=== PATIENT | male | born 1960 | race Caucasian/White ===

== ENCOUNTER 2020-10-27 05:32 | Day surgery (SDC) | payer BC ==
[2020-10-27] MEDS ORDERED: Lactated Ringers 1,000 ML IV ONE (06:20)
[2020-10-27] MEDS ORDERED: Lactated Ringers 1,000 ML IV SCH (06:30)
[2020-10-27] MEDS ORDERED: Xylocaine-Mpf 2% 5 Ml Vial ONE (07:57)
[2020-10-27] MEDS ORDERED: DIPRIVAN 200 MG/20 ML IV ONE (07:57)
[2020-10-27] MEDS ORDERED: Versed 2 MG/2 ML Injection ONE (07:57)
--- NOTE | 2020-10-27 08:58 | OP ---
SURGERY DATE/TIME: 10/27/2020 0755 PREOPERATIVE DIAGNOSIS: Heartburn. POSTOPERATIVE DIAGNOSIS: Mild to moderate gastritis. PROCEDURE: Esophagogastroduodenoscopy with cold forceps biopsy. SURGEON: Dr. Denis. ANESTHESIA: Medications were given by the anesthesia department. BRIEF HISTORY: The patient is a 60 year old white male presenting now for endoscopic evaluation. He reports that he has been having substernal chest pain and heartburn for many years. He reports that the pantoprazole is no longer working for him. 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 The patient was appraised of the risks of the procedure including the risk of perforation, phlebitis, untoward reaction to medication, bleeding and missed lesions. The patient verbalized his understanding and desired to have the procedure performed. DESCRIPTION OF PROCEDURE: The patient was given the medications by the anesthesia department. He had continuous pulse oximetry, ECG monitoring, intermittent blood pressure monitoring and tidal CO2 monitoring during the examination. He was placed in the left lateral decubitus position. A bite block was placed and the flexible Olympus gastroscope was used to intubate the oropharynx. A view of the larynx was obtained and was normal. The scope was easily introduced in the esophagus which appeared to be essentially normal throughout its length. The stomach was entered where normal gastric rugal folds were seen and these distended nicely with insufflation of air. A gastric irving was suctioned dry and the stomach re-insufflated. The scope was passed along the greater curvature of the stomach to the antrum. The pylorus was encountered and intubated. Duodenum inspected and found to be essentially normal. The scope is withdrawn towards the stomach. A retroflex view was obtained of the lesser curvature, fundus and cardia regions of the stomach and there was no significant hiatal hernia noted. The scope was then redirected towards the gastric antrum where biopsies were obtained to rule out the presence of Helicobacter pylori-type organisms. The scope was then removed from the patient who tolerated the procedure well and was sent back to outpatient recovery in good condition. The patient was added famotidine 40 mg a day and asked to stop taking aspirin. I will see him in follow up in the office to give the results of his biopsies.
[2020-10-27 09:11] VITALS: O2SAT 96
[2020-10-27 09:13] VITALS: BP 135/61; PULSE 81
== END 2020-10-27 09:40 | disposition home or self-care (01) ==
LOC: SDC 05:32
PROVIDERS: ATTEND Family Medicine
DX: K29.70 Gastritis, unspecified, without bleeding (principal); R12 Heartburn; Z79.899 Other long term (current) drug therapy
CPT/HCPCS: J2250; J2704

== ENCOUNTER 2025-07-10 15:01 | Emergency (ER) | payer BC ==
[2025-07-10 15:23] VITALS: BP 169/89; PULSE 88; RESP 18; TEMP 97; O2SAT 96
[2025-07-10] MEDS: TYLENOL 325 MG PO STA (16:32)
--- NOTE | 2025-07-10 16:52 | ERPHSYRPT ---
- History of Present Illness Time Seen by Provider: 07/10/25 15:05 Source: patient Patient Subjective Stated Complaint: pt here for pain to left knee after he states the dog ran into the back of hes leg, he did states the dog made him fall, denies hitting head Triage Nursing Assessment: pt alert, walked in with a cane, resp easy, skin w/d/p, has tenderness to left knee, with limited ROM. no swelling Physician History: HISTORY OF PRESENT ILLNESS 65-year-old male with diabetes, MRSA, and hyperlipidemia presents with left knee pain after twisting his leg when a dog ran next to him. He denies the dog biting him; he braced his fall and denies any head injury. He is not anticoagulated. The patient is normally ambulatory without a cane and has a knee brace from home; he has remained ambulatory since the injury. He took Aleve at home prior to arrival. He has decisional capacity and expressed a desire to go home. Denies numbness, paresthesias, subjective weakness, or open wound. PAST MEDICAL HISTORY - Diabetes - Methicillin-resistant Staphylococcus aureus (MRSA) infection - Hyperlipidemia SOCIAL HISTORY - Ambulatory, walking with cane currently Allergies/Adverse Reactions: Iodinated Contrast Media Allergy (Unknown, Verified 07/10/25 15:12) Joint Aches phenobarbital Allergy (Unknown, Verified 07/10/25 15:12) Itching Home Medications: Multivitamin [Multiple Vitamins] 1 tab PO DAILY 07/03/12 [History] PANTOPRAZOLE 40 mg Tablet [Protonix 40MG Tablet] 40 mg PO QAM 10/18/20 [History] Atorvastatin Calcium [Lipitor] 10 mg PO DAILY 10/27/20 [History] Lisinopril 5 mg [Zestril 5 MG] 5 mg PO DAILY 07/10/25 [History] Hx Tetanus, Diphtheria Vaccination/Date Given: No Hx Influenza Vaccination/Date Given: No Hx Pneumococcal Vaccination/Date Given: No Immunizations Up to Date: Yes Travel Risk - International Travel Have you traveled outside of the country in past 3 weeks: No - Emerging Infectious Disease Are you exhibiting symptoms associated with any current EIDs: No - Past Medical History Pertinent Past Medical History: Yes Neurological History: Seizures ENT History: No Pertinent History Cardiac History: High Cholesterol, Hypertension, Other Respiratory History: Other Endocrine Medical History: No Pertinent History Musculoskeletal History: Other GI Medical History: GERD History: No Pertinent History Psycho-Social History: No Pertinent History Male Reproductive Disorders: No Pertinent History Other Medical History: Hx of seizure 40 years ago related to stress. No seizures except that one time. Former smoker. quit 15 years ago[address] Pt saw Dr. Moreira 1 month ago for his high colesterol. Pt reports that his " echo showed some block ages and leaky valves." and his heart scan showed calcium buildup. Plates and screws in lower back. Pt also has hx of high bilirubin levels in his college and young adult years. No diff with liver at present time. 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 No hearing aids. - Past Surgical History Past Surgical History: Yes Neuro Surgical History: No Pertinent History Cardiac: No Pertinent History Respiratory: No Pertinent History Gastrointestinal: Hernia Repair Genitourinary: No Pertinent History Musculoskeletal: Other Male Surgical History: No Pertinent History Other Surgical History: two lower back surgeries with plate and screws. hx of left inguinal hernia repair. , colonoscopy 5 yr ago "possibly had a polyp removed" - Social History Smoking Status: Former smoker Exposure to second hand smoke: No Drug Use: none - Social Determinants of Health Will the patient participate in the screening: Unable to obtain - Nursing Vital Signs Nursing Vital Signs: Initial Vital Signs Temperature 97.0 F 07/10/25 15:22 Pulse Rate 88 07/10/25 15:22 Respiratory Rate 18 07/10/25 15:22 Blood Pressure 169/89 07/10/25 15:22 O2 Sat by Pulse Oximetry 96 07/10/25 15:22 Pain Scale Pain Intensity 4 - Physical Exam SpO2: 96 Comments: 07/10/25 16:48 PHYSICAL EXAM General: Ambulatory with steady gait; in no acute duress. HEENT: Normocephalic. Respiratory: Respirations are non-labored; symmetrical chest wall expansion. Cardiovascular: Normal peripheral perfusion; no edema. 2+ PT and DP pulses. GI: Non-tender. soft. Integumentary: Warm. Musculoskeletal & Peripheral Vascular: Intact flexion and extension of left knee; no obvious laxity; neurovascular intact distally; 2+ PT and DP pulses; intact distal sensation; no open wound; no swelling; no erythema. Non tender in all other extremities. No midline spinal tenderness No step offs or deformities No clonus 2+ patellar reflexes Down going Babinski pelvis is stable. no chest wall tenderness, no abd tenderness Strength and sensation intact bilateral lower extremities Neurologic: Alert; normal speech. moving all extremities, GCS 15. Psychiatric: Appropriate. 07/10/25 16:56 Ordered Tests: Medication Summary Discontinued Medications Generic Name Dose Route Start Last Admin Trade Name Arlen PRN Reason Stop Dose Admin Acetaminophen 975 mg 07/10/25 15:18 07/10/25 16:32 Acetaminophen 325 Mg Tablet PO 07/10/25 15:19 Not Given STAT STA - Progress Progress Note: 07/10/25 16:57 SUMMARY 65-year-old male with diabetes, MRSA, and hyperlipidemia presented with left knee pain after twisting his leg during a fall. Exam showed steady gait, intact knee range of motion, no laxity, and normal distal neurovascular status; no swelling, erythema, or open wound. X-ray was planned but not completed due to p atient elopement. I contacted the patient by phone; he declined further care and demonstrated decisional capacity. Working diagnosis was left knee sprain; fracture considered unlikely based on exam. Patient discharged home after elopement, with no acute distress or concerning findings documented. MEDICAL DECISION MAKING This 65-year-old male with diabetes, MRSA, and hyperlipidemia presented with left knee pain after twisting his leg during a fall, which he braced. He was ambulatory with a steady gait and used a cane. Examination revealed intact flexion and extension of the left knee, no laxity, neurovascular status intact distally, and no signs of open wound, swelling, or erythema. The patient had a knee brace from home and had taken Aleve prior to arrival; Tylenol was planned for symptomatic management in the ED. X-ray of the left knee was planned but remained pending at the time the patient eloped from the ED. Based on clinical assessment and absence of concerning findings on exam, fracture was considered unlikely and a sprain was the probable diagnosis. After elopement, I contacted the patient by phone at [phone]. He confirmed his decision to leave and declined further services. He demonstrated decisional capacity and left prior to an AMA discharge discussion. PATIENT DISCUSSION The patient stated he left the ED and is declining any further services. He has decisional capacity. DISPOSITION Eloped Patient eloped from the emergency department. I did not/was not able to have a discussion about limiting his medical advice. Patient does have decisional capacity. Call the patient over the phone and discussed need for further evaluation. Patient declined. - Departure Departure Disposition: AMA (Eloped from the ED) Clinical Impression: Knee pain Condition: Stable Critical Care Time: No Referrals: MATIAS COLON NP [Primary Care Provider, [facility]] - Follow up/PCP as directed Instructions: Knee Pain (DC) Additional Instructions: You eloped from the emergency department. You are welcome return anytime for further evaluation. Please call the patient's PCP office tomorrow, follow-up with your primary care doctor in the next few days. Please follow up with Orthopedics as well. Please return to the ED if the patient has any new, worsening, or ongoing symptoms, or if their symptoms are not improving as expected.
== END 2025-07-10 16:30 | disposition left against medical advice (07) ==
LOC: ED 15:01
DX: M25.562 Pain in left knee (principal); Z79.899 Other long term (current) drug therapy